=== PATIENT | female | born 1965 | race Caucasian/White ===

== ENCOUNTER 2019-03-30 15:31 | Emergency (ER) | payer OTHER ==
[2019-03-30] MEDS ORDERED: Tetan/Diph/Pertus SYR(Tdap)* 0.5 ML SYR(BOOSTRIX) use SYR IM ONE (16:49)
[2019-03-30] MEDS ORDERED: Lidocaine 1% MPF ** 5 ML VIAL INJ ONE (17:27)
--- NOTE | 2019-03-30 18:17 | ED ---
Laceration/Wound HPI - HPI Summary HPI Summary: Pt. is a 54 y.o female who presents to the ER for a right hand injury that occurred today. Pt. states she was moving a heavy motorized scooter seat when it crushed her right hand causing two lacerations. Unaware of last tetanus immunization. Sxs are mild in severity. Pt. having minimal pain. No significant past medical hx. - History of Current Complaint Stated Complaint: RT HAND LAC PER PT Time Seen by Provider: 03/30/19 16:33 Hx Obtained From: Patient Pain Intensity: 4 - Allergy/Home Medications Allergies/Adverse Reactions: Allergies Allergy/AdvReac Type Severity Reaction Status Date / Time clavulanic acid Allergy Diarrhea Verified 03/30/19 15:51 [From Augmentin] codeine Allergy Vomiting Verified 03/30/19 15:51 Home Medications: Home Medications Levothyroxine Sodium [Synthroid] 1 tab PO QAM 03/30/19 [History Confirmed ] PMH/Surg Hx/FS Hx/Imm Hx Previously Healthy: Yes - Immunization History Date of Tetanus Vaccine: unknown Infectious Disease History: No Infectious Disease History: Denies: Traveled Outside the [place] in Last 30 Days - Family History Known Family History: Positive: Non-Contributory - Social History Occupation: Employed Full-time Lives: With Family Alcohol Use: None Substance Use Type: Reports: None Smoking Status (MU): Never Smoked Tobacco Review of Systems Positive: Other - right hand injury Positive: Other - laceration to second and third digit of right hand Neurological: Negative Negative: Weakness, Paresthesia, Numbness All Other Systems Reviewed And Are Negative: Yes Physical Exam Triage Information Reviewed: Yes Vital Signs On Initial Exam: Initial Vitals Temp Pulse Resp BP Pulse Ox 98.4 F 81 16 136/93 99 03/30/19 15:43 03/30/19 15:43 03/30/19 15:43 03/30/19 15:43 03/30/19 15:43 Vital Signs Reviewed: Yes Appearance: Positive: Well-Appearing - Pt. sitting on bed in NAD. Friend present. Skin: Positive: Warm, Dry Head/Face: Positive: Normal Head/Face Inspection Eyes: Positive: Normal, EOMI, MOE Neck: Positive: Supple Musculoskeletal: Positive: Other - 1.5 cm linear laceration noted to the proximal aspect of the 3rd digit of left hand inbetween MCP and PIP. <1cm flap laceration to to distal aspect of second digit. Mild bony tenderness to these joints. Full ROM of all digits. Neurological: Positive: Normal, CN Intact II-III Psychiatric: Positive: Affect/Mood Appropriate Procedures - Laceration/Wound Repair 1 Location: upper extremity - 3rd digit Anesthesia: Local, 1.0%, Lido Length, Depth and Shape: 1.5.cm linear Betadine Prep?: No - hibiclens Irrigated w/ Saline (ccs): 150 Laceration/Wound Explored: clean Closure: Single Layer Suture Type: Nylon Number of Sutures: 3 Layer Closure?: No Sterile Dressing Applied?: Yes 2 Location: upper extremity - second digit Description: Irregular Anesthesia: Local, 1.0%, Lido Length, Depth and Shape: <1cm triangular Betadine Prep?: No - hibiclens Irrigated w/ Saline (ccs): 100 Laceration/Wound Explored: clean Closure: Single Layer Suture Type: Nylon Number of Sutures: 2 Layer Closure?: No Sterile Dressing Applied?: Yes Diagnostics - Vital Signs Vital Signs Temp Pulse Resp BP Pulse Ox 03/30/19 15:43 98.4 F 81 16 136/93 99 - Laboratory Lab Statement: Any lab studies that have been ordered have been reviewed, and results considered in the medical decision making process. Laceration Repair Course/Dx - Course Course Of Treatment: Patient presenting with simple finger laceration to right hand. No tendon injuries noted. X-ray obtained to rule out fracture, foreign body. X-rays negative for acute findings, reading per myself. Lacerations were repaired as noted above. Patient will follow PCP for suture removal in 7- 10 days. To ice and elevate intermittently. Tylenol for pain as directed. Patient prophylactically placed on amoxicillin given she notes area was very dirty were injury occurred. Patient to return to the ER for redness, swelling or drainage from suture site. Patient understands and agrees with plan. - Differential Dx Differental Diagnoses: Fracture, Laceration, Tendon Laceration - Clinical Impression Provider Diagnoses: Finger laceration Discharge - Sign-Out/Discharge Documenting (check all that apply): Patient Departure Patient Received Moderate/Deep Sedation with Procedure: No - Discharge Plan Condition: Good Disposition: HOME Prescriptions: Amoxicillin PO (*) [Amoxicillin 500 MG CAP*] 500 mg PO Q12H #20 cap Patient Education Materials: Care For Your Stitches (ED) Referrals: [facility] [Outside] Additional Instructions: Suture removal in 7-10 days Keep wound clean and dry Antibiotic as directed Ice and elevate Motrin for pain as directed Return to ER if symptoms change or worsen - Billing Disposition and Condition Condition: GOOD Disposition: Home
[2019-03-30 18:40] VITALS: BP 111/70
== END 2019-03-30 18:38 | disposition home or self-care (01) ==
LOC: ED 15:31
DX: S61.212A Laceration without foreign body of right middle finger without damage to nail, initial encounter (principal); S61.210A Laceration without foreign body of right index finger without damage to nail, initial encounter; W23.0XXA Caught, crushed, jammed, or pinched between moving objects, initial encounter; Y92.9 Unspecified place or not applicable; Z23 Encounter for immunization; Z88.1 Allergy status to other antibiotic agents; Z88.5 Allergy status to narcotic agent
CPT/HCPCS: 12001; 90471; 90715; 99282